=== PATIENT | male | born 1980 | race Hispanic/Latino ===

== ENCOUNTER 2019-07-10 08:59 | Day surgery (SDC) | payer OTHER ==
[2019-07-06 11:40] LABS: BASOPHILS % (AUTO) 0.9 % (0.0-5.0); EOSINOPHILS % (AUTO) 4.7 % (0.0-8.0); HEMATOCRIT 45.1 % (42-54); LYMPHOCYTES % (AUTO) 27.1 % (21.0-51.0); MEAN CORPUSCULAR HEMOGLOBIN 28.5 pg (27.0-33.0); MEAN CORPUSCULAR HGB CONC 33.3 g/dL (32.0-36.0); MEAN CORPUSCULAR VOLUME 85.6 fL (79-99); MONOCYTES % (AUTO) 5.8 % (3.0-13.0); PLATELET COUNT (AUTO) 219 K/uL (130-400); RED BLOOD CELL COUNT(AUTO) 5.27 MIL/uL (4.50-6.20); RED CELL DISTRIBUTION WIDTH 13.3 % (11.0-15.5); WHITE BLOOD COUNT (AUTO) 6.6 K/uL (4.8-10.8)
[2019-07-06 11:50] VITALS: BP 139/68
[2019-07-06 11:57] LABS: INR 0.99 (0.85-1.15); PROTHROMBIN TIME 10.4 SEC (9.6-11.6)
[2019-07-06 11:59] LABS: CREATININE 1.3 mg/dL (0.5-1.5); POTASSIUM 4.6 mmol/L (3.5-5.1)
[2019-07-10] VITALS (16 sets, daily range): BP systolic 126–173; BP diastolic 62–84
[~2019-07-10] VITALS: Ht 193 cm; Wt 112.8 kg
[2019-07-10] MEDS ORDERED: LACTATED RINGERS 1000ML 1,000 ML IV ONE (10:58)
[2019-07-10] MEDS: CEFAZOLIN SODIUM 1 GM VIAL IVP SCH ×2 (11:00→14:25)
[2019-07-10] MEDS ORDERED: LIDOCAINE PF 2% 5ML ABBOJECT ONE (13:39)
[2019-07-10] MEDS ORDERED: ROPIVACAINE 0.5% 5MG/ML 30ML IJ ONE ×2 (13:40→14:06)
[2019-07-10] MEDS ORDERED: MIDAZOLAM HCL 1 MG/ML 2ML VIAL ONE ×2 (13:40→14:04)
[2019-07-10] MEDS ORDERED: PROPOFOL 10 MG/ML 20ML VIAL IV ONE (13:40)
[2019-07-10] MEDS ORDERED: ROCURONIUM 10MG/1ML SYR 10 MG/ML ML ONE (13:40)
[2019-07-10] MEDS ORDERED: FENTANYL CITRATE PF 50 MCG/1 ML 2ML VIAL ONE (13:40)
[2019-07-10] MEDS ORDERED: FENTANYL CITRATE PF 50 MCG/1 ML 5ML AMP IV ONE (14:05)
[2019-07-10] MEDS ORDERED: EPINEPHRINE 1 MG/ML 30ML VIAL IJ ONE (14:49)
[2019-07-10] MEDS ORDERED: ONDANSETRON HCL 4 MG/2 ML VIAL ONE ×2 (15:05→18:49)
[2019-07-10] MEDS ORDERED: DEXAMETHASONE SOD PHOSPHATE 10MG/ML 1ML VIAL ONE (15:05)
[2019-07-10] MEDS ORDERED: EPHEDRINE SULFATE 50 MG/ML AMPULE ONE (16:42)
[2019-07-10] MEDS ORDERED: GLYCOPYRROLATE 1 MG/5 ML SYRINGE ONE (17:12)
[2019-07-10] MEDS ORDERED: NEOSTIGMINE 5MG/5ML SYR IV ONE (17:13)
[2019-07-10] MEDS ORDERED: IBUP-2071 PO (17:31)
[2019-07-10] MEDS ORDERED: HYDR-4457 PO (17:31)
[2019-07-10] MEDS ORDERED: CEPH500B PO (17:31)
[2019-07-10] MEDS ORDERED: HYDRALAZINE HCL 20 MG/ML VIAL ONE (18:04)
[2019-07-10] MEDS ORDERED: METOCLOPRAMIDE 10 MG/2 ML VIAL ONE (18:49)
--- NOTE | 2019-07-10 19:37 | NUR ---
PT LEFT VIA WHEELCHAIR IN PVT CAR WITH RX SCRIPTS GIVEN TO ALONG WITH D/C INSTRUCTIONS. V/S STABLE NO COMPLICATIONS UPON D/C
== END 2019-07-10 19:25 | disposition home or self-care (01) ==
LOC: SUH 08:59 → DAH 08:59 → SUH 19:25
PROVIDERS: ATTEND Orthopaedic Surgery
DX: M75.122 Complete rotator cuff tear or rupture of left shoulder, not specified as traumatic (principal); S43.432A Superior glenoid labrum lesion of left shoulder, initial encounter; M19.012 Primary osteoarthritis, left shoulder; M25.512 Pain in left shoulder; G89.29 Other chronic pain; I10 Essential (primary) hypertension; E78.00 Pure hypercholesterolemia, unspecified; J45.909 Unspecified asthma, uncomplicated; K21.9 Gastro-esophageal reflux disease without esophagitis; Z79.899 Other long term (current) drug therapy; Z72.89 Other problems related to lifestyle; Z98.890 Other specified postprocedural states; X58.XXXA Exposure to other specified factors, initial encounter; Y93.89 Activity, other specified; Y92.89 Other specified places as the place of occurrence of the external cause; Y99.8 Other external cause status; Z79.2 Long term (current) use of antibiotics
CPT/HCPCS: 29824; 29826; 29827; 29828; 36415; 64415; 76942; 80048; 85025; 85610; A4213; A4215; A4221; A4222; A4223; A4600; A4649 ×6; A4663; A4930 ×3; A5120; A6204; C1713 ×3; G0168; J0171; J0360; J0690; J1100; J2001; J2250 ×2; J2405 ×2; J2704; J2710; J2765; J2795 ×2; J3010 ×2; J3490 ×2; J7120 ×2

== ENCOUNTER 2019-11-11 12:40 | Emergency (ER) | payer OTHER ==
[~2019-11-11 12:40] MED LIST: CEPH500B PO; HYDR-4457 PO; IBUP-2071 PO
[2019-11-11] MEDS ORDERED: ACETAMINOPHEN EXTRA STRENGTH 500 MG TABLET ONE (13:50)
[2019-11-11 13:53] LABS: BASOPHILS % (AUTO) 0.3 % (0.0-5.0); HEMATOCRIT 43.6 % (42-54); LYMPHOCYTES % (AUTO) 21.2 % (21.0-51.0); MEAN CORPUSCULAR HEMOGLOBIN 29.2 pg (27.0-33.0); MEAN CORPUSCULAR HGB CONC 34.9 g/dL (32.0-36.0); MEAN CORPUSCULAR VOLUME 83.7 fL (79-99); MONOCYTES % (AUTO) 6.6 % (3.0-13.0); NEUTROPHILS % (AUTO) 71.4 % (40.0-77.0); PLATELET COUNT (AUTO) 143 K/uL (130-400); RED BLOOD CELL COUNT(AUTO) 5.21 MIL/uL (4.50-6.20); RED CELL DISTRIBUTION WIDTH 13.1 % (11.0-15.5)
[2019-11-11 14:04] LABS: INR 1.04 (0.85-1.15); PARTIAL THROMBOPLASTIN TIME 32.5 SEC (26.3-35.5); PROTHROMBIN TIME 11.2 SEC (9.6-11.6)
[2019-11-11 14:17] LABS: CREATININE 1.2 mg/dL (0.5-1.5); POTASSIUM 3.2 mmol/L (3.5-5.1)
[2019-11-11 14:22] LABS: BILIRUBIN,TOTAL 0.6 mg/dL (0.2-1.0); TOTAL PROTEIN, SERUM 7.6 g/dL (6.0-8.3)
[2019-11-11] MEDS ORDERED: CEFTRIAXONE SODIUM 1 GM ONE (14:36)
[2019-11-11] MEDS ORDERED: AZITHROMYCIN 250 MG TABLET PO ONE (14:37)
[2019-11-11 16:11] LABS: APPEARANCE,URINE Cloudy (CLEAR); BILIRUBIN,URINE Small (NEGATIVE); COLOR,URINE Dark Yellow (YELLOW); GLUCOSE, URINE (UA) Negative (NEGATIVE); KETONES,URINE 15 mg/dL (NEGATIVE); LEUKOCYTE ESTERASE ,URINE Negative (NEGATIVE); NITRATE,URINE Negative (NEGATIVE); OCCULT BLOOD,URINE Trace (NEGATIVE); PROTEIN,URINE 300 mg/dL (NEGATIVE)
[2019-11-11] MEDS ORDERED: ENOXAPARIN SODIUM 40 MG/0.4 ML SYRINGE SQ ONE (17:21)
[2019-11-11 17:36] LABS: BACTERIA,URINE Few /HPF (None Seen); OTHER CASTS, URINE WBC CASTS 1+ /LPF (None Seen); RBC,URINE 0-1 /HPF (0-1); SQUAMOUS EPITHELIAL CELL,UR Rare /HPF (0-2)
== END 2019-11-11 18:10 | disposition home or self-care (01) ==
LOC: EDH 12:40
DX: U07.1 COVID-19 (principal); B34.9 Viral infection, unspecified
CPT/HCPCS: 36415; 80053; 71045; 81001; 83605; 84484; 85025; 85378; 85610; 85730; 87040; 87804 ×2; 93005; 96372; 96374; 99285; J0696; J1650; U0003

== ENCOUNTER 2019-12-30 01:49 | Emergency (ER) | payer OTHER ==
[2019-12-30] MEDS ORDERED: FLUORESCEIN SODIUM 1 STRIP STRIP ONE (01:59)
[2019-12-30] MEDS ORDERED: TETRACAINE HCL 0.5% 4 ML OPHTH SOLN ONE (01:59)
== END 2019-12-30 02:34 | disposition home or self-care (01) ==
LOC: EDH 01:49
DX: H10.9 Unspecified conjunctivitis (principal)